=== PATIENT | male | born 1960 | race Caucasian/White ===

== ENCOUNTER 2023-05-10 08:27 | Emergency (ER) | payer BC ==
[2023-05-10] MEDS ORDERED: Sodium Chloride 0.9% 1,000 ML IV ONE (10:20)
[2023-05-10] MEDS ORDERED: Sodium Chloride 0.9% 10 ML Syringe FLUSH PRN (10:20)
[2023-05-10] MEDS ORDERED: GI Cocktail Oral Solution 30 ML PO ONE (10:22)
[2023-05-10] MEDS ORDERED: Sodium Chloride 0.9% 250 ML IV SCH (11:00)
[2023-05-10] MEDS ORDERED: Sodium Chloride 0.9% 1,000 ML IV SCH (12:00)
[2023-05-10] MEDS ORDERED: HYDROmorphone 2 MG/ML Syringe ONE (12:09)
[2023-05-10] MEDS: HYDROmorphone 2 MG/ML Syringe IVPUSH PRN ×2 (12:10→22:14)
[2023-05-10] MEDS ORDERED: D5 1/2 NS w/ 20 mEq/L KCl 1,000 ML IV ONE ×2 (13:15→15:30)
[2023-05-10] MEDS ORDERED: Sodium Chloride 0.9% 50 ML SDV FLUSH ONE (15:19)
[2023-05-10] MEDS ORDERED: Iopamidol 612 MG/ML 100 ML Bottle IV SCH (15:30)
[2023-05-10] MEDS ORDERED: Diatrizoate Meglumine/Diatrizoate Sodium 37% 30 ML Bottle PO SCH (15:30)
[2023-05-10 17:48] LABS: BASOPHILS ABSOLUTE AUTO 0.01 K/uL (0.02-0.10); BASOPHILS PERCENT AUTO 0.1 % (0.0-0.5); EOSINOPHILS ABSOLUTE AUTO 1.77 K/uL (0.04-0.40); EOSINOPHILS PERCENT AUTO 15.6 % (1.0-5.0); HEMATOCRIT 42.9 % (40.0-54.0); HEMOGLOBIN 14.3 g/dL (13.0-18.0); LYMPHOCYTES ABSOLUTE AUTO 1.15 K/uL (1.50-4.00); LYMPHOCYTES PERCENT AUTO 10.1 % (20.0-40.0); MEAN CORPUSCULAR HEMOGLOBIN 27.3 pg (27.0-32.0); MEAN CORPUSCULAR HGB CONC 33.3 g/dL (31.0-35.0); MEAN CORPUSCULAR VOLUME 82 fL (76-96); MEAN PLATELET VOLUME 9.6 fL (6.0-10.0); MONOCYTES ABSOLUTE AUTO 0.18 K/uL (0.20-0.80); MONOCYTES PERCENT AUTO 1.6 % (3.0-10.0); NEUTROPHILS ABSOLUTE AUTO 8.26 K/uL (2.00-7.50); NEUTROPHILS PERCENT AUTO 72.6 % (45.0-70.0); PLATELET COUNT,PLT 479 K/uL (150-400); RED BLOOD CELL COUNT 5.23 M/uL (4.50-6.50); RED CELL DISTRIBUTION WIDTH 12.8 % (11.0-16.0); WHITE BLOOD CELL COUNT,WBC 11.4 K/uL (4.0-11.0)
[2023-05-10 18:06] LABS: A/G RATIO 0.6 (0.8-2.0); ALBUMIN 2.1 g/dL (3.4-5.0); ANION GAP 13.2 mmol/L (5.0-15.0); BILIRUBIN TOTAL 0.7 mg/dL (0.0-1.0); BUN/CREATININE RATIO 15.7 (6-25); CALCIUM 8.1 mg/dL (8.5-10.1); CARBON DIOXIDE,CO2 27.7 mmol/L (21.0-32.0); CREATININE 1.02 mg/dL (0.70-1.30); EST CRCL DRUG DOSING (CG) 73.16 mL/min; POTASSIUM,K 3.9 mmol/L (3.5-5.1); PROTEIN TOTAL,TP 5.6 g/dL (6.4-8.2)
[2023-05-10] MEDS ORDERED: Esomeprazole 40 MG Cap PO ONE (19:17)
[2023-05-10] MEDS ORDERED: Pantoprazole 40 MG Tab.CR ONE (19:33)
[2023-05-10] MEDS ORDERED: Pantoprazole 40 MG Tab.CR PO SCH (19:45)
== END 2023-05-10 22:30 | disposition home or self-care (01) ==
LOC: LB.ED 08:27
DX: R13.10 Dysphagia, unspecified (principal); R18.8 Other ascites; J91.8 Pleural effusion in other conditions classified elsewhere; I10 Essential (primary) hypertension; Z79.82 Long term (current) use of aspirin; Z79.899 Other long term (current) drug therapy
CPT/HCPCS: 36415; 71250; 74178; 76705; 80053; 83690; 85025; 96361; 96365; 96366; 96375; 99284; A9270; J1170; J3480; J3490; J7030; Q9963; Q9967

== ENCOUNTER → 2023-05-11 | Day surgery (SDC) | payer BC ==
[~2023-05-11] MED LIST: Propofol 200 MG/20 ML SDV ONE
[2023-05-11] MEDS: Sodium Chloride 0.9% 1,000 ML IV SCH (09:40)
[2023-05-11 11:06] VITALS: BP 133/72; PULSE 79
== END ==
LOC: LB.SDS 09:09
PROVIDERS: ATTEND Surgery
DX: K29.50 Unspecified chronic gastritis without bleeding (principal); K31.89 Other diseases of stomach and duodenum; I10 Essential (primary) hypertension; Z88.8 Allergy status to other drugs, medicaments and biological substances; Z88.1 Allergy status to other antibiotic agents
CPT/HCPCS: 88305; 88342; J2704; J7030

== ENCOUNTER 2023-05-19 08:36 | Emergency (ER) | payer BC, MEDICARE ==
[2023-05-19] MEDS: Sodium Chloride 0.9% 1,000 ML IV SCH ×2 (09:53→11:16)
[2023-05-19] MEDS ORDERED: Sodium Chloride 0.9% 10 ML Syringe FLUSH PRN ×2 (09:57→11:50)
[2023-05-19 10:19] LABS: BASOPHILS ABSOLUTE AUTO 0.02 K/uL (0.02-0.10); BASOPHILS PERCENT AUTO 0.1 % (0.0-0.5); EOSINOPHILS ABSOLUTE AUTO 5.97 K/uL (0.04-0.40); EOSINOPHILS PERCENT AUTO 39.9 % (1.0-5.0); HEMATOCRIT 46.9 % (40.0-54.0); LYMPHOCYTES ABSOLUTE AUTO 1.27 K/uL (1.50-4.00); LYMPHOCYTES PERCENT AUTO 8.5 % (20.0-40.0); MEAN CORPUSCULAR HEMOGLOBIN 27.4 pg (27.0-32.0); MEAN CORPUSCULAR HGB CONC 34.1 g/dL (31.0-35.0); MEAN CORPUSCULAR VOLUME 80 fL (76-96); MEAN PLATELET VOLUME 10.2 fL (6.0-10.0); MONOCYTES ABSOLUTE AUTO 0.42 K/uL (0.20-0.80); MONOCYTES PERCENT AUTO 2.8 % (3.0-10.0); NEUTROPHILS ABSOLUTE AUTO 7.28 K/uL (2.00-7.50); NEUTROPHILS PERCENT AUTO 48.7 % (45.0-70.0); PLATELET COUNT,PLT 375 K/uL (150-400); RED BLOOD CELL COUNT 5.84 M/uL (4.50-6.50); RED CELL DISTRIBUTION WIDTH 13.7 % (11.0-16.0)
[2023-05-19 10:26] LABS: A/G RATIO 0.6 (0.8-2.0); ALBUMIN 2.2 g/dL (3.4-5.0); ANION GAP 14.5 mmol/L (5.0-15.0); BUN/CREATININE RATIO 18.4 (6-25); CALCIUM 8.9 mg/dL (8.5-10.1); CARBON DIOXIDE,CO2 24.6 mmol/L (21.0-32.0); CREATININE 1.41 mg/dL (0.70-1.30); EST CRCL DRUG DOSING (CG) 52.93 mL/min; POTASSIUM,K 4.1 mmol/L (3.5-5.1); PROTEIN TOTAL,TP 6.2 g/dL (6.4-8.2)
[2023-05-19] MEDS ORDERED: Sodium Chloride 0.9% 50 ML IV ONE (11:50)
[2023-05-19] MEDS ORDERED: Iopamidol 612 MG/ML 100 ML Bottle IV SCH (12:00)
[2023-05-19] MEDS ORDERED: Ketorolac 30 MG/ML SDV IVPUSH ONE (12:08)
[2023-05-19] MEDS ORDERED: Ketorolac 30 MG/ML SDV ONE (12:11)
[2023-05-19 12:14] LABS: APPEARANCE,URINE CLEAR (CLEAR); BILIRUBIN,URINE SMALL (NEGATIVE); GLUCOSE,URINE NEGATIVE (NEGATIVE); KETONES,URINE 40 mg/dL (NEGATIVE); LEUKOCYTE ESTERASE,URINE NEGATIVE (NEGATIVE); NITRITE,URINE NEGATIVE (NEGATIVE); OCCULT BLOOD,URINE MODERATE (NEGATIVE); PH,URINE 5.5 (5.0-8.0); PROTEIN,URINE 30 mg/dL (NEGATIVE); UROBILINOGEN,URINE 0.2 E.U./dL (0.2-1.0)
[2023-05-19 12:16] LABS: COLOR,URINE YELLOW
[2023-05-19 12:17] LABS: EPITHELIAL CELLS,URINE RARE /HPF; WBC,URINE 0-5 /HPF
[2023-05-19] MEDS ORDERED: D5 1/2 NS w/ 20 mEq/L KCl 1,000 ML IV SCH (12:30)
== END 2023-05-19 17:05 ==
LOC: LB.ED 08:36
DX: K43.9 Ventral hernia without obstruction or gangrene (principal); J90 Pleural effusion, not elsewhere classified; F17.210 Nicotine dependence, cigarettes, uncomplicated; R53.1 Weakness; I10 Essential (primary) hypertension; Z88.8 Allergy status to other drugs, medicaments and biological substances; Z88.1 Allergy status to other antibiotic agents; Z79.82 Long term (current) use of aspirin; Z79.899 Other long term (current) drug therapy
CPT/HCPCS: 36415; 71260; 74177; 80053; 81001; 83690; 85025; 93005; 96361; 96365; 96366; 96375; 99285-25; J1885; J3480; J7030

== ENCOUNTER 2023-05-29 13:32 | Inpatient (IN) | payer MEDICARE ==
[2023-05-29] MEDS ORDERED: Acetaminophen 325 MG Tab PO PRN (16:24)
[2023-05-29] MEDS ORDERED: Bisacodyl 10 MG Supp RECTAL PRN (16:24)
[2023-05-29] MEDS ORDERED: Tuberculin, PPD 5 Units/0.1 ML 1 ML MDV IDERM ONE (16:24)
[2023-05-29] MEDS ORDERED: Sennosides/Docusate Sodium 50-8.6 MG Tab PO PRN (16:24)
[2023-05-29] MEDS: Warfarin 5 MG Tab PO SCH (17:32)
[2023-05-29] MEDS: Famotidine 20 MG Tab PO SCH (19:05)
[2023-05-29] MEDS: Enoxaparin 80 MG/0.8 ML Syringe SUBCUT SCH (19:06)
[2023-05-29] MEDS: Rosuvastatin 20 MG Tab PO SCH (19:38)
[2023-05-29] MEDS ORDERED: Melatonin 3 MG Tab PO PRN (20:00)
[2023-05-29] MEDS ORDERED: Sennosides/Docusate Sodium 50-8.6 MG Tab PO ONE (20:00)
[2023-05-29] MEDS ORDERED: diphenhydrAMINE 50 MG Cap PO ONE (23:16)
[2023-05-30] MEDS: Polyethylene Glycol 3350 Powder 17 GM Packet PO SCH (07:29)
[2023-05-30 08:20] LABS: INR 1.9 (1.0-3.5)
[2023-05-30 08:22] LABS: PROTHROMBIN TIME 18.8 sec (9.0-11.5)
[2023-05-30] MEDS: Enoxaparin 80 MG/0.8 ML Syringe SUBCUT SCH ×2 (08:47→20:50)
[2023-05-30] MEDS: Famotidine 20 MG Tab PO SCH ×2 (08:48→20:50)
[2023-05-30] MEDS: predniSONE 20 MG Tab PO SCH (08:48)
[2023-05-30] MEDS: Hydroxychloroquine 200 MG Tab PO SCH (08:49)
[2023-05-30] MEDS: Aspirin 81 MG Tab.EC PO SCH (08:49)
[2023-05-30] MEDS: Metoprolol Succinate 100 MG Tab.ER PO SCH (08:50)
[2023-05-30] MEDS: Warfarin 5 MG Tab PO SCH (17:52)
[2023-05-30] MEDS: Rosuvastatin 20 MG Tab PO SCH (20:48)
[2023-05-31] MEDS ORDERED: Sulfamethoxazole/Trimethoprim 800-160 MG Tab PO SCH (08:00)
[2023-05-31] MEDS: predniSONE 20 MG Tab PO SCH (08:10)
[2023-05-31] MEDS: Metoprolol Succinate 100 MG Tab.ER PO SCH (08:10)
[2023-05-31] MEDS: Aspirin 81 MG Tab.EC PO SCH (08:10)
[2023-05-31] MEDS: Enoxaparin 80 MG/0.8 ML Syringe SUBCUT SCH (08:11)
[2023-05-31] MEDS: Famotidine 20 MG Tab PO SCH (08:11)
[2023-05-31] MEDS: Polyethylene Glycol 3350 Powder 17 GM Packet PO SCH (08:12)
[2023-05-31] MEDS: Hydroxychloroquine 200 MG Tab PO SCH (08:13)
[2023-05-31 08:18] LABS: INR 1.9 (1.0-3.5); PROTHROMBIN TIME 19.5 sec (9.0-11.5)
[2023-05-31] MEDS ORDERED: Enoxaparin 80 MG/0.8 ML Syringe ONE ×2 (12:00→14:11)
[2023-05-31 13:49] VITALS: BP 112/67; PULSE 60
== END 2023-05-31 14:50 | disposition home or self-care (01) | DRG 547 ==
LOC: LB.MS 16:24 → UNDOADMIN 16:24 → LB.MS 05-30 13:00
PROVIDERS: ADMIT Physician Assistant; ATTEND Physician Assistant
DX: M32.10 Systemic lupus erythematosus, organ or system involvement unspecified (principal); I10 Essential (primary) hypertension; H91.90 Unspecified hearing loss, unspecified ear; R13.10 Dysphagia, unspecified; Z88.0 Allergy status to penicillin; Z88.8 Allergy status to other drugs, medicaments and biological substances; Z79.82 Long term (current) use of aspirin; Z79.899 Other long term (current) drug therapy
CPT/HCPCS: 36415; 85610; 85651; 86141; 86580; 92507-GN; 92523-GN; 97162-GP; 97165-GO; 97530-GP; 97535-GO; A9270-GY; J1650; J7512

== ENCOUNTER 2023-06-02 22:35 | Emergency (ER) | payer MEDICARE ==
[2023-06-02] MEDS ORDERED: Lidocaine 1% with EPINEPHrine 1:100,000 50 ML MDV INFILT ONE (23:02)
[2023-06-02] MEDS ORDERED: Diphtheria,Pertussis(Acell),Tetanus Vaccine 0.5 ML Syringe IM ONE (23:03)
[2023-06-02 23:09] LABS: HEMATOCRIT 40.6 % (40.0-54.0); HEMOGLOBIN 13.4 g/dL (13.0-18.0); MEAN CORPUSCULAR HEMOGLOBIN 26.8 pg (27.0-32.0); MEAN CORPUSCULAR VOLUME 81 fL (76-96); MEAN PLATELET VOLUME 9.9 fL (6.0-10.0); RED CELL DISTRIBUTION WIDTH 14.3 % (11.0-16.0)
[2023-06-02 23:14] LABS: PLATELET COUNT,PLT 612 K/uL (150-400)
[2023-06-02 23:24] LABS: MICROCYTOSIS OCCASIONAL
[2023-06-02 23:25] LABS: GIANT PLATELETS OCCASIONAL; PLATELET COUNT ESTIMATE MARKED INC
[2023-06-02 23:26] LABS: INR 1.9 (1.0-3.5); PTT,PARTIAL THROMBOPLSTIN TIME 35.1 SECONDS (24.4-33.2)
[2023-06-02 23:28] LABS: PROTHROMBIN TIME 18.9 sec (9.0-11.5)
[2023-06-02] MEDS ORDERED: Sodium Chloride 0.9% 10 ML Syringe FLUSH PRN (23:31)
[2023-06-02] MEDS ORDERED: HYDROmorphone 2 MG/ML Syringe IVPUSH ONE (23:32)
[2023-06-02] MEDS ORDERED: Ondansetron 4 MG/2 ML SDV IVPUSH ONE (23:33)
[2023-06-02 23:45] LABS: A/G RATIO 0.7 (0.8-2.0); ALANINE AMINOTRANSFERASE,ALT 79 U/L (12-78); ALBUMIN 2.6 g/dL (3.4-5.0); ALKALINE PHOSPHATASE 99 U/L (46-116); ANION GAP 11.8 mmol/L (5.0-15.0); ASPARTATE AMNIOTRANSFERASE,AST 31 U/L (15-37); BILIRUBIN TOTAL 0.6 mg/dL (0.0-1.0); BLOOD UREA NITROGEN,BUN 28 mg/dL (8-26); BUN/CREATININE RATIO 25.2 (6-25); CALCIUM 8.5 mg/dL (8.5-10.1); CARBON DIOXIDE,CO2 24.6 mmol/L (21.0-32.0); CHLORIDE,CL 104 mmol/L (98-107); CREATININE 1.11 mg/dL (0.70-1.30); ESTIMATED GFR 74 mL/min (>60); GLUCOSE RANDOM 119 mg/dL (74-100); POTASSIUM,K 4.4 mmol/L (3.5-5.1); PROTEIN TOTAL,TP 6.2 g/dL (6.4-8.2); SODIUM,NA 136 mmol/L (136-145)
[2023-06-02] MEDS ORDERED: HYDROmorphone 2 MG/ML Syringe ONE (23:49)
[2023-06-02] MEDS ORDERED: Ondansetron 4 MG/2 ML SDV ONE (23:49)
== END 2023-06-03 01:27 | disposition home or self-care (01) ==
LOC: LB.ED 22:35
DX: S02.611A Fracture of condylar process of right mandible, initial encounter for closed fracture (principal); S01.81XA Laceration without foreign body of other part of head, initial encounter; S03.01XA Dislocation of jaw, right side, initial encounter; Z79.01 Long term (current) use of anticoagulants; I10 Essential (primary) hypertension; Z23 Encounter for immunization; Z79.82 Long term (current) use of aspirin; Z79.899 Other long term (current) drug therapy; Z88.0 Allergy status to penicillin; Z88.8 Allergy status to other drugs, medicaments and biological substances; W13.3XXA Fall through floor, initial encounter
CPT/HCPCS: 12011; 36415; 70450; 70486; 80053; 85025; 85610; 85730; 90471; 90715; 96374; 96375; 99284; J1170; J2405

== ENCOUNTER 2023-06-03 04:27 | Emergency (ER) | payer MEDICARE ==
[2023-06-03] MEDS ORDERED: Bacitracin Oint 1 GM U/D Packet TOP ONE (05:32)
[2023-06-03] MEDS ORDERED: Lidocaine 1% with EPINEPHrine 1:100,000 50 ML MDV INFILT ONE (05:32)
[2023-06-03 05:49] LABS: BASOPHILS ABSOLUTE AUTO 0.03 K/uL (0.02-0.10); BASOPHILS PERCENT AUTO 0.1 % (0.0-0.5); EOSINOPHILS ABSOLUTE AUTO 0.05 K/uL (0.04-0.40); EOSINOPHILS PERCENT AUTO 0.2 % (1.0-5.0); HEMATOCRIT 40.1 % (40.0-54.0); LYMPHOCYTES ABSOLUTE AUTO 2.47 K/uL (1.50-4.00); LYMPHOCYTES PERCENT AUTO 8.8 % (20.0-40.0); MEAN CORPUSCULAR HEMOGLOBIN 26.5 pg (27.0-32.0); MEAN CORPUSCULAR HGB CONC 32.4 g/dL (31.0-35.0); MEAN CORPUSCULAR VOLUME 82 fL (76-96); MEAN PLATELET VOLUME 10.3 fL (6.0-10.0); MONOCYTES PERCENT AUTO 8.9 % (3.0-10.0); NEUTROPHILS ABSOLUTE AUTO 23.08 K/uL (2.00-7.50); RED CELL DISTRIBUTION WIDTH 14.3 % (11.0-16.0)
[2023-06-03 05:51] LABS: WHITE BLOOD CELL COUNT,WBC 28.1 K/uL (4.0-11.0)
[2023-06-03 05:52] LABS: PLATELET COUNT,PLT 653 K/uL (150-400)
[2023-06-03] MEDS ORDERED: HYDROmorphone 2 MG/ML Syringe SUBCUT ONE (06:21)
[2023-06-03] MEDS ORDERED: Ondansetron 4 MG Tab.DIS PO ONE (06:22)
[2023-06-03] MEDS ORDERED: Ondansetron 4 MG Tab.DIS ONE (06:23)
[2023-06-03] MEDS ORDERED: HYDROmorphone 2 MG/ML Syringe ONE (06:23)
== END 2023-06-03 07:02 | disposition home or self-care (01) ==
LOC: LB.ED 04:27
DX: S01.81XA Laceration without foreign body of other part of head, initial encounter (principal); I10 Essential (primary) hypertension; Z79.82 Long term (current) use of aspirin; Z79.899 Other long term (current) drug therapy; Z79.01 Long term (current) use of anticoagulants; Z88.0 Allergy status to penicillin; Z87.891 Personal history of nicotine dependence; Z88.8 Allergy status to other drugs, medicaments and biological substances; W19.XXXA Unspecified fall, initial encounter; Y92.009 Unspecified place in unspecified non-institutional (private) residence as the place of occurrence of the external cause
CPT/HCPCS: 12011; 36415; 85025; 96372; 99283; J1170; Q0162

== ENCOUNTER 2023-06-05 11:18 | Emergency (ER) | payer MEDICARE ==
[2023-06-05] MEDS ORDERED: Lidocaine 1% with EPINEPHrine 1:100,000 50 ML MDV INFILT ONE (11:43)
[2023-06-05 11:51] LABS: BASOPHILS ABSOLUTE AUTO 0.01 K/uL (0.02-0.10); BASOPHILS PERCENT AUTO 0.1 % (0.0-0.5); EOSINOPHILS ABSOLUTE AUTO 0.08 K/uL (0.04-0.40); EOSINOPHILS PERCENT AUTO 0.6 % (1.0-5.0); HEMATOCRIT 31.2 % (40.0-54.0); HEMOGLOBIN 10.1 g/dL (13.0-18.0); LYMPHOCYTES ABSOLUTE AUTO 2.32 K/uL (1.50-4.00); LYMPHOCYTES PERCENT AUTO 17.5 % (20.0-40.0); MEAN CORPUSCULAR HEMOGLOBIN 26.9 pg (27.0-32.0); MEAN CORPUSCULAR HGB CONC 32.4 g/dL (31.0-35.0); MEAN CORPUSCULAR VOLUME 83 fL (76-96); MEAN PLATELET VOLUME 10.5 fL (6.0-10.0); MONOCYTES PERCENT AUTO 11.3 % (3.0-10.0); NEUTROPHILS ABSOLUTE AUTO 9.31 K/uL (2.00-7.50); NEUTROPHILS PERCENT AUTO 70.5 % (45.0-70.0); PLATELET COUNT,PLT 560 K/uL (150-400); RED BLOOD CELL COUNT 3.76 M/uL (4.50-6.50); RED CELL DISTRIBUTION WIDTH 14.3 % (11.0-16.0); WHITE BLOOD CELL COUNT,WBC 13.2 K/uL (4.0-11.0)
[2023-06-05] MEDS: Bacitracin Oint 1 GM U/D Packet TOP ONE (12:20)
[2023-06-05 12:31] LABS: INR 2.7 (1.0-3.5)
[2023-06-05 12:32] LABS: PROTHROMBIN TIME 26.5 sec (9.0-11.5)
[2023-06-05 14:24] VITALS: BP 100/65; PULSE 68
== END 2023-06-05 13:25 | disposition home or self-care (01) ==
LOC: LB.ED 11:18
DX: S01.81XA Laceration without foreign body of other part of head, initial encounter (principal); I10 Essential (primary) hypertension; Z79.01 Long term (current) use of anticoagulants; Z79.899 Other long term (current) drug therapy; Z88.0 Allergy status to penicillin; Z88.8 Allergy status to other drugs, medicaments and biological substances; Z79.82 Long term (current) use of aspirin; W19.XXXA Unspecified fall, initial encounter
CPT/HCPCS: 36415; 85025; 85610; 85730; 99283